=== PATIENT | male | born 2000 | race Caucasian/White ===

== ENCOUNTER 2024-01-07 01:04 | Emergency (ER) | payer OTHER, SELFPAY ==
[2024-01-07 01:04] VITALS: BMI 29.8
[2024-01-07 01:07] VITALS: BP 130/80
[2024-01-07 01:20] VITALS: BP 124/83
--- NOTE | 2024-01-07 01:33 | ED.GENMED ---
History of Present Illness
General
Chief Complaint: Alcohol Problem
Source: patient and family (parents)
Exam Limitations: none
Time Seen by Provider: 01/07/24 01:21
Travel History
Have you had any contact with someone who has COVID-19?: No
Do you have any symptoms of coronavirus? Fever > 100 degrees, chills, cough, shortness of breath, sore throat, loss of taste or smell, muscle aches, or headache?: No
History of Present Illness
History of Present Illness:
This is a 23 year old male that is brought in by family with intoxication. Parents state that they thought he was working. Then they got a call around 12 midnight from a friend that he went to school with in High School. States that they were told
that he was intoxicated and that he was disoriented. States that they were told that he was sending out Text that was just gibberish. States that they were told that he was found on the streets in [place]. States that they didn't know what
else he was doing so they thought that he better be checked. Patient state that he was out drinking and had about 5-6 beers. Patient states that his friends brought him here. Denies any fever, chills, chest pain, SOB, abd pain, nausea, diarrhea,
headache, dizziness, urinary burning.
Past History
Past History
ED Past Medical History: None
ED Past Surgical History: None
Social History
Tobacco: Non-smoker
Alcohol: Occasional
Personal: Single
Living: with family
Employment: Employed
Review of Systems
Review of Systems
All Other Systems: ROS reviewed and negative except as documented in HPI and ROS
Constitutional: Reports no symptoms; Denies fever or chills
EENT: Reports no symptoms
Respiratory: Reports no symptoms; Denies cough or trouble breathing
Cardiac: Reports no symptoms; Denies chest pain
ABD/GI: Reports vomiting; Denies abdominal pain, nausea or diarrhea
: Reports no symptoms; Denies dysuria, frequency or urgency
Musculoskeletal: Reports no symptoms
Skin: Reports no symptoms
Neurological: Reports other (Intoxication); Denies dizzy or headache
Psychiatric: Reports no symptoms
Phy Exam
General Physical Exam
General Presentation: no apparent distress
General age: appears stated age
General Skin: warm and dry
General Habitus: normal
General Mental: appears intoxicated
General Hydration: dry mucous membranes
ENT Exam
ENT Exam: TM's normal, pharynx normal and neck supple
Eye Exam
Eye Exam: EOMI
Cardiovascular Exam
Cardiovascular Exam: regular rate/rhythm, no edema, no murmur and normal peripheral pulses
Pulmonary Exam
Pulmonary Exam: lungs clear, no respiratory distress, no rales, chest non tender, no crackles, no rhonchi, no wheezing and no cough
Gastrointestinal Exam
Gastrointestinal Exam: normal bowel sounds, non tender, soft, no organomegaly, no pulsatile mass and non distended
Musculoskeletal Exam
Musculoskeletal Exam: full ROM and no edema
Skin Exam
Skin Exam: normal color, warm/dry, no rash and no petechia
Psychiatric Exam
Psychiatric Exam: other (Appears intoxicated but able to answer questions about himself)
Scores
Withdrawal Assessment of Alcohol
Withdrawal Assessment Completed?: No
Course
Orders/Labs/Results
Orders:
Orders
01/07/24 01:32
0.9% Sodium Chloride 1000 ml [Nss] 1,000 ml IV BOLUS
Ondansetron Injectable [Zofran] 4 mg IV NOW STA
01/07/24 01:58
Alcohol Urgent
Complete Blood Count/With Diff Urgent
Comprehensive Metabolic Panel Urgent
Lipase Urgent
01/07/24 03:07
Urine Drug Abuse Screen Urgent
Date Specimen was Collected: 01/07/24
Time Specimen was Collected: 03:07
Abnormal Lab Results
01/07/24
01:58
WBC 16.0 H 10^3/uL
(4.8-10.8)
Abs Immat Gran (auto) 0.1 H 10^3/uL
(0-0.05)
Absolute Neuts (auto) 14.6 H 10^3/uL
(1.4-6.5)
Absolute Lymphs (auto) 0.8 L 10^3/uL
(1.2-3.4)
Immature Gran % 0.6 H %
(0-0.5)
Neutrophils % 90.8 H %
(42.2-75.2)
Lymphocytes % 5.2 L %
(20.5-51.1)
Carbon Dioxide 21 L mmol/L
(22-30)
Glucose 120 H mg/dl
(70-99)
Albumin 5.2 H g/dl
(3.5-5.0)
Lipase 510 H U/L
(23-300)
01/07/24 01:58
01/07/24 01:58
Leukocytosis, glucose nonfasting. albumin slightly elevated. Lipase slightly elevated Alcohol 234, Urine drug negative
Vital Signs
Initial and Last Documented VS:
Initial Vital Signs
Temp Pulse Resp BP Pulse Ox
97.8 F 89 16 130/80 97
01/07/24 01:07 01/07/24 01:07 01/07/24 01:07 01/07/24 01:07 01/07/24 01:07
Last Documented Vital Signs
Temp Pulse Resp BP Pulse Ox
97.8 F 89 16 111/56 95
01/07/24 01:07 01/07/24 01:07 01/07/24 01:07 01/07/24 02:51 01/07/24 02:04
MDM/Problems Addressed
Differential Diagnosis Includes:
Intoxication,
MDM/Problems Addressed:
This is a 23 year old male that is brought in with c/o intoxication. Family states that they thought he was working. Patient states that he was out with friends and drank to much. Parents state that they received a call at 12 midnight that he was
intoxicated and sending out text that made no sense. Told that he was found on the streets.
Will check labs, Alcohol level, give IV fluids and Zofran. Will get urine Drug
Back into see patient. Explained to patient and parents that he is legally intoxicated. Explained that his Lipase is elevated that this could be an early pancreatitis. Encouraged patient to stop his drinking or he will develop pancreatitis and need
to come back to the Hospital. Parents are willing to take patient home as long as urine drug negative. Will discharge home.
Chronic conditions affecting care:
NA
Acute Exacerbation and/or Progression of Chronic Illness:
NA
*Pulse Oximetry
Patient hypoxic: no
*EKG
Interpreted by ED Provider?: NA
Rate: EKG- N/A
*Ship'S Engineer Interpretation
Rate: Ship'S Engineer- N/A
*Critical Care Note
Total Time (30-74mins, 75-104mins- exclusive of procedures): Not Applicable
ED Attending Note
-
Portions of this chart may have been created with voice recognition software.� Occasional wrong word or��sound alike� substitutions may have occurred due to the inherent limitations of voice recognition software.
Discharge Plan
Departure
Patient Disposition: Home (Routine Discharge)
Date of Disposition: 01/07/24
Time of Disposition: 03:44
Patient with high blood pressure during this ER visit?: No
Condition: Good
Covid-19: Not Applicable
Discharge Problem:
Alcohol intoxication
Instructions: Alcohol Use Disorder (DC)
Prescriptions:
No Action
No Current Medications
0
Activity Restrictions/Additional Instructions:
As discussed, your blood work shows that your White blood cell count is elevated. This may be due to your vomiting and stress. Your Lipase is also slightly elevated. This may be an early pancreatitis. You need to stop drinking to allow your level to
come down. Please increase your water intake to 8-8oz glasses daily. Follow up with the family doctor for recheck. IF YOU HAVE ABDOMINAL PAIN, VOMITING, OR YOU HAVE ANY OTHER CONCERNS PLEASE RETURN TO THE EMERGENCY ROOM
Interventions
Interventions:
*Risk Screen - Suicide Last Done: 01/07/24 01:07
*General Assessment Last Done: 01/07/24 02:05
*Neglect/Abuse Screening Last Done: 01/07/24 01:07
*ED COVID-19 Vaccine History Last Done: 01/07/24 01:07
ED- Neurological Assessment Last Done: 01/07/24 01:24
ED-Psychological Assessment Last Done: 01/07/24 01:24
Discharge Date and Time
Print Language: ARMENIAN
[2024-01-07] MEDS: NSS 1000 IV (01:58)
[2024-01-07] MEDS: ZOFRAN 4 MG IV (01:58)
[2024-01-07 02:06] LABS: % Basophils 0.4 % (0-2); % Eosinophils 0.1 % (0-6); % Immature Granulocytes 0.6 % (0-0.5); % Lymphocytes 5.2 % (20.5-51.1); % Monocytes 2.9 % (1.7-9.3); % Neutrophils 90.8 % (42.2-75.2); Absolute Basophils 0.1 10^3/uL (0-0.2); Absolute Immature Granulocytes 0.1 10^3/uL (0-0.05); Absolute Lymphocytes 0.8 10^3/uL (1.2-3.4); Absolute Monocytes 0.5 10^3/uL (0.1-0.6); Absolute Neutrophils 14.6 10^3/uL (1.4-6.5); Hematocrit 44.7 % (39.0-52.0); Hemoglobin 16.2 g/dL (13.0-18.0); Mean Corp Hgb Conc. 36.2 g/dL (33.0-37.0); Mean Corpuscular Hgb 30.3 pg (27.0-31.0); Mean Corpuscular Volume 83.7 fL (80.0-94.0); Mean Platelet Volume 10.2 fL (7.4-10.4); Nucleated Red Blood Cells % 0 % (-); Platelet Count 225 10^3/uL (130-400); Red Blood Cell Count 5.34 10^6/uL (4.70-6.10); Red Cell Dist. Width 11.9 % (11.5-14.5)
[2024-01-07 02:39] LABS: ALT (SGPT) 34 U/L (0-50); AST (SGOT) 39 U/L (17-59); Albumin 5.2 g/dl (3.5-5.0); Alcohol 234 mg/dl; Alkaline Phosphatase 69 U/L (38-126); Blood Urea Nitrogen 13 mg/dl (9-20); Calcium 9.7 mg/dl (8.4-10.2); Carbon Dioxide 21 mmol/L (22-30); Chloride 107 mmol/L (98-107); Estimated Creatinine Clearance > 125 ml/min; Glucose 120 mg/dl (70-99); Lipase 510 U/L (23-300); Potassium 4.1 mmol/L (3.5-5.1); Sodium 141 mmol/L (135-145); Total Bilirubin 0.7 mg/dl (0.2-1.3); Total Protein 8.1 g/dl (6.3-8.2); eGFR > 60.00
[2024-01-07 02:51] VITALS: BP 111/56
[2024-01-07 03:42] LABS: Amphetamines Negative (Negative); Barbiturates Negative (Negative); Benzodiazepines Negative (Negative); Buprenorphine Negative (Negative); Cocaine Negative (Negative); Marijuana Negative (Negative); Methadone Negative (Negative); Methamphetamines Negative (Negative); Opiates Negative (Negative); Phencyclidine Negative (Negative); Tricyclic Antidepressants Negative (Negative)
== END 2024-01-07 04:04 | disposition home or self-care (01) ==
LOC: EMR 01:04
PROVIDERS: Clinical Nurse Specialist Family Health; EMERGENCY PHYSICIAN Student in an Organized Health Care Education/Training Program; FAMILY PHYSICIAN Family Medicine
DX: F10.129 Alcohol abuse with intoxication, unspecified (principal)
CPT/HCPCS: 99284; 96374; 96361; 80053; 80306; 82077; 83690; 85025

== ENCOUNTER → 2024-11-24 07:19 | Outpatient (REF) | payer OTHER, SELFPAY | LOC: HWRAD 07:19 | PROVIDERS: ATTENDING PHYSICIAN Physician Assistant Medical | DX: R14.0 Abdominal distension (gaseous) (principal) | CPT/HCPCS: 76700 ==